=== PATIENT | female | born 2005 | race Two or more races ===

== ENCOUNTER 2025-02-06 16:35 | Emergency (ER) | payer OTHER ==
[~2025-02-06] VITALS: Ht 144.8 cm; Wt 43.5 kg
[2025-02-06] MEDS ORDERED: CLINDAMYCIN HCL 150 MG CAPSULE ONE (18:51)
[2025-02-06] MEDS ORDERED: CLIN300C12 PO (18:53)
[2025-02-06] MEDS ORDERED: HYDR-4209 PO (18:53)
[2025-02-06] MEDS: CLINDAMYCIN HCL 150 MG CAPSULE PO ONE (18:53)
[2025-02-06] MEDS: SODIUM BICARBONATE 4.2 % (NEUT) 5 ML VIAL TP ONE (19:30)
[2025-02-06] MEDS: LIDOCAINE 1%-EPI 1:100,000 20 ML VIAL IJ ONE (19:30)
[2025-02-06] MEDS ORDERED: ONDANSETRON ODT 4 MG TAB.RAPDIS ONE (19:31)
[2025-02-06] MEDS ORDERED: OXYCODONE/APAP 5-325 MG TABLET ONE (19:31)
[2025-02-06] MEDS: OXYCODONE/APAP 5-325 MG TABLET PO ONE (19:35)
[2025-02-06] MEDS: ONDANSETRON ODT 4 MG TAB.RAPDIS SL ONE (19:35)
[2025-02-06] MEDS ORDERED: SODIUM BICARBONATE 4.2 % (NEUT) 5 ML VIAL ONE (19:49)
[2025-02-06] MEDS ORDERED: LIDOCAINE 1%-EPI 1:100,000 20 ML VIAL ONE (19:49)
[2025-02-06 20:51] VITALS: BP 128/80; O2SAT 99
[2025-02-10] MEDS ORDERED: NEOM10DR11 EACH EAR (21:40)
== END 2025-02-06 20:47 | disposition home or self-care (01) ==
LOC: ER 16:44
DX: S90.851A Superficial foreign body, right foot, initial encounter (principal); H65.92 Unspecified nonsuppurative otitis media, left ear; N76.0 Acute vaginitis; B96.89 Other specified bacterial agents as the cause of diseases classified elsewhere; G40.909 Epilepsy, unspecified, not intractable, without status epilepticus; W25.XXXA Contact with sharp glass, initial encounter; Y93.89 Activity, other specified; Y92.89 Other specified places as the place of occurrence of the external cause; Y99.8 Other external cause status
CPT/HCPCS: 99284; 73650; J3490 ×2; A4606; A4663; Q0162